=== PATIENT | male | born 2000 | race Caucasian/White ===

== ENCOUNTER 2024-12-17 15:51 | Emergency (ER) | payer SELFPAY ==
[~2024-12-17] VITALS: Ht 180.3 cm; Wt 70.0 kg
[2024-12-17 16:22] VITALS: BP 127/69; PULSE 83; RESP 18; TEMP 97.9; O2SAT 97
== END 2024-12-17 17:35 | disposition home or self-care (01) ==
LOC: ER 15:52
DX: K12.0 Recurrent oral aphthae (principal)
CPT/HCPCS: 99282